=== PATIENT | female | born 1935 | race African-American/Black ===

== ENCOUNTER 2018-04-21 07:29 | Emergency (ER) | payer MEDICARE, MEDICAID ==
[2018-04-21] MEDS ORDERED: ASPIRIN 81 MG TABLET, CHEWABLE PO ONE (08:21)
[2018-04-21] MEDS ORDERED: OXYCODONE-ACETAMINOPHEN 5-325 MG TABLET PO ONE (08:25)
--- NOTE | 2018-04-21 08:27 | ER Document Report ---
ED Cardiac - General Chief Complaint: Breast Problem Stated Complaint: BREAST AND BACK PAIN Time Seen by Provider: 04/21/18 08:06 Mode of Arrival: Ambulatory Information source: Patient, Relative Notes: Patient presents complaining of left lateral chest pain that has been off and on for the past 2 and half weeks. Patient states that she will get multiple episodes of sharp pains each day. Patient denies any aggravating or alleviating factors. Patient denies any cough or cold symptoms. Patient denies any nausea or vomiting. Patient denies fever. - HPI Patient complains to provider of: Chest pain Quality of pain: Sharp Chest pain radiation location: denies: Left arm, Left shoulder Pain level currently: 4 Chest pain precipitating factors: At Rest Cardiac risk factors: Hypertension. denies: Diabetes Associated symptoms: denies: Abdominal pain, Anxiety, Back pain, Dizziness, Headache, Lightheaded, Nausea/vomiting, Neck pain, Palpitations Exacerbated by: Denies Relieved by: Nothing Similar symptoms previously: No Recently seen / treated by doctor: No - Related Data Allergies/Adverse Reactions: iodine Allergy (Verified 04/21/18 07:35) Past Medical History - General Information source: Patient - Social History Smoking Status: Former Smoker Frequency of alcohol use: None Drug Abuse: None Lives with: Family Family History: Reviewed & Not Pertinent Patient has suicidal ideation: No Patient has homicidal ideation: No - Past Medical History Cardiac Medical History: Reports: Hx Hypertension, Other - Abdominal aortic aneurysm Renal/ Medical History: Reports: Hx Peritoneal Dialysis GI Medical History: Reports: Hx Gastroesophageal Reflux Disease Past Surgical History: Reports: Hx Vascular Surgery - Bilateral lower extremity stents, aneurysm stent Review of Systems - Review of Systems Constitutional: No symptoms reported. denies: Fever, Recent illness EENT: No symptoms reported Cardiovascular: Chest pain. denies: Palpitations, Orthopnea, Dizziness, Lightheaded Respiratory: No symptoms reported. denies: Cough, Short of breath Gastrointestinal: No symptoms reported. denies: Abdominal pain, Diarrhea, Nausea, Vomiting Genitourinary: No symptoms reported. denies: Dysuria, Flank pain Female Genitourinary: No symptoms reported Musculoskeletal: No symptoms reported. denies: Back pain Skin: No symptoms reported Hematologic/Lymphatic: No symptoms reported Neurological/Psychological: No symptoms reported Physical Exam - Vital signs Vitals: Temp Pulse Resp BP Pulse Ox 97.7 F 66 14 154/67 H 99 04/21/18 07:36 04/21/18 07:36 04/21/18 07:36 04/21/18 07:36 04/21/18 07:36 - General General appearance: Appears well, Alert In distress: None - HEENT Head: Normocephalic, Atraumatic Eyes: Normal Conjunctiva: Normal Nasal: Normal Mouth/Lips: Normal Mucous membranes: Normal Neck: Normal, Supple. No: Lymphadenopathy - Respiratory Respiratory status: No respiratory distress Chest status: Nontender Breath sounds: Normal Chest palpation: Normal - Cardiovascular Rhythm: Regular Heart sounds: S1 appreciated, S2 appreciated Murmur: No - Abdominal Inspection: Normal Distension: No distension Bowel sounds: Normal Tenderness: Nontender Organomegaly: No organomegaly - Back Back: Normal, Nontender. No: CVA tenderness - Extremities General upper extremity: Normal inspection, Nontender, Normal ROM General lower extremity: Normal inspection, Nontender, Normal ROM - Neurological Neuro grossly intact: Yes Cognition: Normal [place] Coma Scale Eye Opening: Spontaneous Serg Coma Scale Verbal: Oriented Serg Coma Scale Motor: Obeys Commands [place] Coma Scale Total: 15 - Psychological Associated symptoms: Normal affect, Normal mood - Skin Skin Temperature: Warm Skin Moisture: Dry Skin Color: Normal Course - Re-evaluation Re-evalutation: 04/21/18 10:48 Patient continues to have intermittent sharp chest pain. Vital signs stable at this time. Patient states that she has previously had reactions to IV dye in which she had facial swelling and difficulty breathing. Patient states that she has had studies since then in which she was premedicated with Benadryl and steroids and tolerated the contrast dye. Discussed patient's reaction with aviation electronics technician. aviation electronics technician states that they will not perform study if she has had difficulty breathing or swelling. 04/21/18 15:[address] Castano regarding patient presentation, reviewed diagnostic test results as well as physical exam findings. Review of controlled substance database. Patient does have a history of consistent narcotic use over the past several months. Patient states that she has been taking pain medication as needed after her abdominal aortic aneurysm surgery. No concern for pulmonary embolism, ACS, dissection, pneumothorax, pneumonia. Recommends outpatient follow-up with primary care provider in outpatient cardiology for further evaluation. - Vital Signs Vital signs: Temp Pulse Resp BP Pulse Ox 97.7 F 66 28 H 133/70 H 99 04/21/18 07:36 04/21/18 07:36 04/21/18 15:00 04/21/18 16:00 04/21/18 15:00 - Laboratory Result Diagrams: 04/21/18 09:12 04/21/18 09:12 Laboratory results interpreted by me: 04/21/18 04/21/18 04/21/18 09:12 09:12 09:12 RBC 3.47 L Hgb 10.3 L Hct 31.2 L RDW 15.9 H D-Dimer 13.21 H Sodium 146.1 H Chloride 108 H Est GFR (Non-Af Amer) 54 L Labs- Entire Visit 04/21/18 04/21/18 04/21/18 09:12 09:12 09:12 WBC 5.1 RBC 3.47 L Hgb 10.3 L Hct 31.2 L MCV 90 MCH 29.6 MCHC 32.9 RDW 15.9 H Plt Count 198 Seg Neutrophils % 57.9 Lymphocytes % 28.9 Monocytes % 10.6 Eosinophils % 1.9 Basophils % 0.7 Absolute Neutrophils 2.9 Absolute Lymphocytes 1.5 Absolute Monocytes 0.5 Absolute Eosinophils 0.1 Absolute Basophils 0.0 D-Dimer Sodium 146.1 H Potassium 3.9 Chloride 108 H Carbon Dioxide 30 Anion Gap 8 BUN 20 Creatinine 0.99 Est GFR ( Amer) > 60 Est GFR (Non-Af Amer) 54 L Glucose 84 Calcium 9.4 Magnesium 2.2 Total Bilirubin 0.3 Direct Bilirubin 0.3 Neonat Total Bilirubin Not Reportable Neonat Direct Bilirubin Not Reportable Neonat Indirect Bili Not Reportable AST 24 ALT 19 Alkaline Phosphatase 85 Creatine Kinase 40 CK-MB (CK-2) < 0.22 Troponin I < 0.012 Total Protein 7.0 Albumin 3.8 Lipase 34.2 04/21/18 04/21/18 09:12 12:32 WBC RBC Hgb Hct MCV MCH MCHC RDW Plt Count Seg Neutrophils % Lymphocytes % Monocytes % Eosinophils % Basophils % Absolute Neutrophils Absolute Lymphocytes Absolute Monocytes Absolute Eosinophils Absolute Basophils D-Dimer 13.21 H Sodium Potassium Chloride Carbon Dioxide Anion Gap BUN Creatinine Est GFR ( Amer) Est GFR (Non-Af Amer) Glucose Calcium Magnesium Total Bilirubin Direct Bilirubin Neonat Total Bilirubin Neonat Direct Bilirubin Neonat Indirect Bili AST ALT Alkaline Phosphatase Creatine Kinase CK-MB (CK-2) Troponin I < 0.012 Total Protein Albumin Lipase - Diagnostic Test Radiology reviewed: Reports reviewed Discharge - Discharge Clinical Impression: Chest pain Qualifiers: Chest pain type: unspecified Qualified Code(s): R07.9 - Chest pain, unspecified Condition: Stable Disposition: HOME, SELF-CARE Instructions: Chest Pain of Unclear Cause ([facility]) Additional Instructions: Return immediately for any new or worsening symptoms Followup with your primary care provider, call tomorrow to make a followup appointment Follow-up with your records management coordinator for recheck, call tomorrow for an appointment Prescriptions: Lidocaine [Lidoderm 5% (700 mg) Transdermal Patch] 1 patch TP DAILY PRN #[id number] adh..patch PRN Reason: Referrals: ISSAC RODRIGUEZ MD [Primary Care Provider] - Follow up tomorrow
--- NOTE | 2018-04-21 08:52 | RADIOLOGY REPORT (SQ) ---
EXAM DESCRIPTION: CHEST 2 VIEWS COMPLETED DATE/TIME: 04/21/2018 8:41 am REASON FOR STUDY: cp COMPARISON: None. EXAM PARAMETERS: NUMBER OF VIEWS: two views TECHNIQUE: Digital Frontal and Lateral radiographic views of the chest acquired. RADIATION DOSE: NA LIMITATIONS: none FINDINGS: LUNGS AND PLEURA: No opacities, masses or pneumothorax. No pleural effusion. MEDIASTINUM AND HILAR STRUCTURES: No masses or contour abnormalities. HEART AND VASCULAR STRUCTURES: Heart normal size. No evidence for failure. BONES: No acute findings. HARDWARE: None in the chest. OTHER: No other significant finding. IMPRESSION: NO ACUTE RADIOGRAPHIC FINDING IN THE CHEST. TECHNICAL DOCUMENTATION: JOB ID: [id number] [employer]- All Rights Reserved Reading location - IP/workstation name: [email or web address]
[2018-04-21 09:21] LABS: ABSOLUTE EOSINOPHILS # (AUTO) 0.1 10^3/uL (0.0-0.6); ABSOLUTE LYMPHOCYTES (AUTO) 1.5 10^3/uL (0.5-4.7); ABSOLUTE MONOCYTES (AUTO) 0.5 10^3/uL (0.1-1.4); ABSOLUTE NEUT (AUTO) 2.9 10^3/uL (1.7-8.2); BASOPHILS % (AUTO) 0.7 % (0-2); EOSINOPHILS % (AUTO) 1.9 % (0-6); HEMATOCRIT 31.2 % (36.0-47.0); HEMOGLOBIN 10.3 g/dL (12.0-15.5); LYMPHOCYTES % (AUTO) 28.9 % (13-45); MEAN CORPUSCULAR HEMOGLOBIN 29.6 pg (27.0-33.4); MEAN CORPUSCULAR HGB CONC 32.9 g/dL (32.0-36.0); MEAN CORPUSCULAR VOLUME 90 fl (80-97); MONOCYTES % (AUTO) 10.6 % (3-13); PLATELET COUNT 198 10^3/uL (150-450); RED BLOOD COUNT 3.47 10^6/uL (3.72-5.28); RED CELL DISTRIBUTION WIDTH 15.9 % (11.5-14.0); SEGMENTED NEUTROPHILS % (AUTO) 57.9 % (42-78); TOTAL CELLS COUNTED % (AUTO) 100 %; WHITE BLOOD COUNT 5.1 10^3/uL (4.0-10.5)
[2018-04-21 09:34] LABS: ALANINE AMINOTRANSFERASE 19 U/L (9-52); ALBUMIN 3.8 g/dL (3.5-5.0); ALKALINE PHOSPHATASE 85 U/L (38-126); ANION GAP 8 (5-19); ASPARTATE AMINO TRANSFERASE 24 U/L (14-36); BILIRUBIN,DIRECT 0.3 mg/dL (0.0-0.4); BILIRUBIN,TOTAL 0.3 mg/dL (0.2-1.3); BLOOD UREA NITROGEN 20 mg/dL (7-20); CALCIUM 9.4 mg/dL (8.4-10.2); CARBON DIOXIDE 30 mmol/L (22-30); CHLORIDE 108 mmol/L (98-107); CREATINE KINASE 40 U/L (30-135); GLUCOSE 84 mg/dL (75-110); LIPASE 34.2 U/L (23-300); POTASSIUM 3.9 mmol/L (3.6-5.0); SODIUM 146.1 mmol/L (137-145)
[2018-04-21] MEDS ORDERED: LIDOCAINE 5% (700 MG) TRANSDERMAL ADH..PATCH TP ONE (09:35)
[2018-04-21 09:46] LABS: CREATINE KINASE MB < 0.22 ng/mL (<4.55); TROPONIN I < 0.012 ng/mL
[2018-04-21] MEDS ORDERED: FENTANYL CITRATE INJ/PF 100 MCG/2 ML AMPUL IV ONE (12:17)
--- NOTE | 2018-04-21 14:31 | RADIOLOGY REPORT (SQ) ---
EXAM DESCRIPTION: NM LUNG VENT/PERF SCAN COMPLETED DATE/TIME: 04/21/2018 2:09 pm REASON FOR STUDY: cp, elevated dimer COMPARISON: Chest radiograph 04/21/2018 RADIONUCLIDE AND DOSE: 5.48 millicuries TC-99m MAA Intravenous 32.6 millicuries TC-99m DTPA Inhaled aerosol TECHNIQUE: Eight views of the lungs acquired post ventilation of DTPA aerosol. Eight matching views of the lungs acquired following injection of MAA. LIMITATIONS: None. FINDINGS: VENTILATION: Small photopenic areas are demonstrated on the RPO, FRANK, and ARMENIAN ventilation acquisitions. PERFUSION: Matched small photopenic areas seen on the RPO, FRANK and ARMENIAN acquisitions correlate to area s of ventilatory photopenia cited above. OTHER: No other significant finding. IMPRESSION: Match V/Q defects may represent underlying parenchymal lung disease. No mismatched defe cts to suggest pulmonary embolus. TECHNICAL DOCUMENTATION: JOB ID: [id number] [employer]- All Rights Reserved Reading location - IP/workstation name: [email or web address]
[2018-04-21 16:04] VITALS: BP 133/70
--- NOTE | 2018-04-22 00:48 | EKG REPORT ---
SEVERITY:- ABNORMAL ECG - SINUS RHYTHM MULTIPLE ATRIAL PREMATURE COMPLEXES RIGHT BUNDLE BRANCH BLOCK PROBABLE LEFT VENTRICULAR HYPERTROPHY : Confirmed by: Charlene Reeves MD 22-Apr-2018 00:48:04
== END 2018-04-21 16:04 | disposition home or self-care (01) ==
LOC: ER 07:29
DX: R07.9 Chest pain, unspecified (principal); I10 Essential (primary) hypertension; Z87.891 Personal history of nicotine dependence
CPT/HCPCS: 93005; 99285; 36415; 82553; 82550; 83690; 83735; 85025; 80053; 84484; 85379; 71046; 78582; 93010; A9540; A9567; A9270 ×2; J3010